=== PATIENT | female | born 1940 | race Caucasian/White ===

== ENCOUNTER 2022-02-09 11:32 | Inpatient (IN) ==
--- NOTE | 2022-02-09 12:16 | DR.EXT ---
HPI Time Seen Time Seen by Provider: 02/09/22 12:14 PCP Primary Care Physician: FLO HPI Comment HPI Comment: NECK BACK ,VOMITING AND HEADACHE. WAS SEEN IN ER 2 DAYS AGO AND WAS TREATED FOR NAUSEA,VOMITNG AND HEADACE AND UTI. STILL WITH SYMPTOMS AND RETURNED TO ER TODAY. Complaint Chief Complaint:: PT WAS IN ER ON THURSDAY WITH C/O NECK AND BACK PAIN, VOMITTING AND HEADACHES. PT WAS PRESCRIBED CIPRO FOR UTI. PT CONT TO HAVE SEVERE PAIN IN NECK, SHOULDERS AND BACK. Self Treatment fo Chief Complaint: CIPRO COVID-19 Coronavirus risk:travel/contact w/high risk person: No Has patient experienced Coronavirus symptoms: No Source History Provided: Patient Mode of Arrival Mode of Arrival: Ambulatory Timing Onset of Chief Complaint: 02/06/22 PMH PMH Past Medical History: Yes Past Medical History: Arthritis and Seizures Past Surgical History: Yes Surgical History: Joint Replacement and Other Family History History of Family Medical Conditions: No Social History Does patient currently use any type of tobacco product: Yes Have you used tobacco products in the last 12 months: Yes Type of Tobacco Use: Cigarettes Does any household member use tobacco: No Alcohol Use: None Do you use any recreational Drugs:: No Lives With: Alone Lives Where: Home Travel Risk Coronavirus risk:travel/contact w/high risk person: No Has patient experienced Coronavirus symptoms: No Infectious screening In the last 2 months have you had wt loss of >10#?: NO Have you had fever, night sweats or hemotysis?: No Have you traveled outside the country in the last 6 months?: No Isolation: Standard ROS Review of Systems Constitutional: Other (HEADACHE WITH NAUSEA AND VOMITNG AND R UPPER BACK PAIN.) Eyes: No Symptoms Reported ENTM: No Symptoms Reported Respiratoy: No Symptoms Reported Cardiovascular: No Symptoms Reported Gastrointestinal/Abdominal: Nausea and Vomiting Genitourinary: No Symptoms Reported Neurological: No Symptoms Reported Musculoskeletal: Back Pain Integumentary: No Symptoms Reported Hematologic/Lymphatic: No Symptoms Reported Endocrine: No Symptoms Reported Psychiatric: No Symptoms Reported PE Vital Signs Vitals: Temperature 98.7 F Pulse Rate 80 Respiratory Rate 20 Blood Pressure 116/58 O2 Sat by Pulse Oximetry 97 General Limitations: No Limitations General Appearance: In Distress (MODERATE DISTRESS) Head Head Exam: Normal Inspection, Atraumatic and Normocephalic Eyes Eye exam: Normal Appearance, PERRL and EOMI ENT ENT Exam: Normal Exam and Normal Oropharynx Neck Neck Exam: Normal Inspection, Full ROM and Trachea Midline Chest Chest Inspection: Normal Inspection and Symmetric Chest Wall Rise Respiratory Respiratory Exam: Normal Lung Sounds Bilat and Accessory Muscle Use Respiratory Exam: Bilateral: Clear to Auscultation Cardiovascular Cardiovascular Exam: Regular Rate and Normal Rhythm Abdominal Exam Abdominal Exam: Normal Inspection, Normal Bowel Sounds and Soft Extremies Extremities Exam: Normal Inspection and Full ROM Upper Extremities Shoulder Exam: Normal Inspection and Full ROM Arm Exam: Normal Inspection Elbow Exam: Normal Inspection Forearm Exam: Normal Inspection Hand Exam: Normal Inspection Neuromotor Exam: Normal Exam Neurosensory Exam: Normal Exam Lower Extremities Hip/Pelvis Exam: Normal Inspection Upper Leg Exam: Normal Inspection Knee Exam: Normal Inspection Lower Leg Exam: Normal Inspection Ankle Exam: Normal Inspection Foot/Toe Exam: Normal Inspection Neurovascular/Tendon Exam: Normal Capillary Refill Gait Exam: Observed and Normal Back Back Exam: Full ROM Neurologic Neurological Exam: Alert, Oriented X3 and CN II-XII Intact Psychiatric Psychiatric Exam: Normal Affect and Normal Mood Skin Skin Exam: Warm, Dry and Intact MDM Differential Diagnosis Differential Diagnosis: Other (HEADACHE,INTESTINAL OBSTRUCTION,HIATAL HERNI A,GERD) COURSE Treatment Treatment: PATIENT HAD CT OF ABDOMEN AND PELVIS THAT SHOWED POSSIBLE ABDOMINAL OUTLET OBSTRUCTION,LARGE HIATAL HERNIA CONTAINING THE ENTIRE STOMACH THAT WAS DILATED. GASTRIC VOLVULUS CANNT BE RULED OUT. SURGICAL CONSULT SUGGESTED. THE CT OF BRAIN SHOWED NO INTRACRANIAL ABNORMALITY. I SPOKE TO DR GUEVARA AT 1410 AND STATED TO ADMIT THE PATIENT TO HIM, GIVE PROTONIX 1V AND GIVE IV FLUIDS AND SOMETHING FOR PAIN. HE WOULD BE IN TO SE THE PATIENT. THE PATIENT'S DAUGHTER WAS ADVISED OF THE INTENT TO ADMIT AND SHE WAS AGREABLE TO THE ADMISSION. THE DAUGHTER TRANSLATED THIS TO HER MOTHER. ROR Labs Reviewed Laboratory Results Reviewed?: Yes Result Diagrams: 02/09/22 12:46 02/09/22 12:46 Laboratory: WBC 9.3 X10^3/uL (3.6-10.0) 02/09/22 12:46 RBC 3.74 X10^6/uL (3.5-5.4) 02/09/22 12:46 Hgb 11.8 g/dL (12.0-16.0) L 02/09/22 12:46 Hct 34.4 % (36.0-47.0) L 02/09/22 12:46 MCV 92.0 fL (80.0-100.0) 02/09/22 12:46 MCH 31.4 pg (27.0-34.0) 02/09/22 12:46 MCHC 34.2 g/dL (33.0-35.0) 02/09/22 12:46 RDW 13.7 % (11.6-16.5) 02/09/22 12:46 Plt Count 317 X10^3/uL (150.0-450.0) 02/09/22 12:46 MPV 8.1 fL (7.4-11.0) 02/09/22 12:46 Neut % (Auto) 77.4 % (42.0-75.0) H 02/09/22 12:46 Lymph % (Auto) 14.9 % (21.0-51.0) L 02/09/22 12:46 [place] % (Auto) 6.9 % (0.0-13.0) 02/09/22 12:46 Eos % (Auto) 0.4 % (0.9-2.9) L 02/09/22 12:46 Baso % (Auto) 0.4 % (0.2-1.0) 02/09/22 12:46 Neut # (Auto) 7.2 x10^3/uL (2.2-4.8) H 02/09/22 12:46 Lymph # (Auto) 1.4 X10^3/uL (1.3-2.9) 02/09/22 12:46 [place] # (Auto) 0.6 x10^3/uL (0.3-0.8) 02/09/22 12:46 Eos # (Auto) 0.0 x10^3/uL (0.0-0.2) 02/09/22 12:46 Baso # (Auto) 0.0 X10^3/uL (0.0-0.1) 02/09/22 12:46 Absolute Nucleated RBC 0.0 /100WBC 02/09/22 12:46 Sodium 136 mmol/L (136-145) 02/09/22 12:46 Corrected Sodium 136 mmol/L (136-145) 02/09/22 12:46 Potassium 4.0 mmol/L (3.5-5.1) 02/09/22 12:46 Chloride 99 mmol/L (98-107) 02/09/22 12:46 Carbon Dioxide 31.2 mmol/L (21-32) 02/09/22 12:46 BUN 18 mg/dL (7-18) 02/09/22 12:46 Creatinine 0.85 mg/dL (0.55-1.02) 02/09/22 12:46 Est GFR (MDRD) Af Amer > 60 (>60) 02/09/22 12:46 Est GFR (MDRD) Non-Af > 60 (>60) 02/09/22 12:46 Glucose 119 mg/dL (65-99) H 02/09/22 12:46 Calcium 8.4 mg/dL (8.5-10.1) L 02/09/22 12:46 Corrected Calcium 9.0 mg/dL (8.5-10.1) 02/09/22 12:46 Total Bilirubin 0.30 mg/dL (0.2-1.0) 02/09/22 12:46 AST 15 Units/L (15-37) 02/09/22 12:46 ALT 13 Units/L (12-78) 02/09/22 12:46 Alkaline Phosphatase 257 Units/L (46-116) H 02/09/22 12:46 Total Protein 7.1 g/dL (6.4-8.2) 02/09/22 12:46 Albumin 3.3 g/dL (3.4-5.0) L 02/09/22 12:46 Globulin 3.8 g/dL (2.5-4.5) 02/09/22 12:46 Albumin/Globulin Ratio 0.9 Ratio (1.1-2.1) L 02/09/22 12:46 Opioid Opioid Risk Tool Age (Nam box if 16-45): No History of Preadolescent Sexual Abuse: No Total: 0 Total Score Risk Category: Low Risk Copyright: Rodriguez MATTSON predicting aberrant behaviors Discharge Plan Diagnosis Discharge Problem: Gastric outlet obstruction, Large hiatal hernia Discharge Plan Patient Disposition: 09 ADMITTED INPATIENT Condition: Stable Prescriptions: No Action carbamazepine 200 mg tablet extended release 12 hr 1 tab PO TID gabapentin 100 mg capsule 1 cap PO TID Health Concerns: Post Hospitalization: new medications and changes needed to prevent readmission or further decline. Pt educated and given instructions on all concerns. Plan of Treatment: Continue with present treatment and follow up plan. Pt is to keep follow up appointment as instructed and take medications as ordered. Orders to Discharge Patient Discharge Orders: Transfer (Routine); Ordered 02/09/22 Ordered By: Peterson Larkin Follow ups/Referrals Follow ups/Referrals: LEVY ROSSI [Primary Care Provider] - 3 days
[2022-02-09 13:06] LABS: BASOPHILS % (AUTO) 0.4 % (0.2-1.0); EOSINOPHILS % (AUTO) 0.4 % (0.9-2.9); HEMATOCRIT 34.4 % (36.0-47.0); HEMOGLOBIN 11.8 g/dL (12.0-16.0); LYMPHOCYTES # (AUTO) 1.4 X10^3/uL (1.3-2.9); LYMPHOCYTES % (AUTO) 14.9 % (21.0-51.0); MEAN CORPUSCULAR HEMOGLOBIN 31.4 pg (27.0-34.0); MEAN CORPUSCULAR HGB CONC 34.2 g/dL (33.0-35.0); MEAN PLATELET VOLUME 8.1 fL (7.4-11.0); MONOCYTES # (AUTO) 0.6 x10^3/uL (0.3-0.8); MONOCYTES % (AUTO) 6.9 % (0.0-13.0); NEUTROPHILS # (AUTO) 7.2 x10^3/uL (2.2-4.8); NEUTROPHILS % (AUTO) 77.4 % (42.0-75.0); RED BLOOD COUNT 3.74 X10^6/uL (3.5-5.4); RED CELL DISTRIBUTION WIDTH 13.7 % (11.6-16.5); WHITE BLOOD COUNT 9.3 X10^3/uL (3.6-10.0)
[2022-02-09 13:15] LABS: ALANINE AMINOTRANSFERASE 13 Units/L (12-78); ALBUMIN 3.3 g/dL (3.4-5.0); ALKALINE PHOSPHATASE 257 Units/L (46-116); ASPARTATE AMINO TRANSFERASE 15 Units/L (15-37); BLOOD UREA NITROGEN 18 mg/dL (7-18); CALCIUM 8.4 mg/dL (8.5-10.1); CARBON DIOXIDE 31.2 mmol/L (21-32); CHLORIDE 99 mmol/L (98-107); COR NA(FOR HYPERGLY) 136 mmol/L (136-145); CREATININE 0.85 mg/dL (0.55-1.02); SODIUM 136 mmol/L (136-145); TOTAL PROTEIN 7.1 g/dL (6.4-8.2); eGFR NON BLACK RACES > 60 (>60)
--- NOTE | 2022-02-09 13:39 | CT ---
HISTORYHeadache, nausea, neck painSTUDYCT head without contrastTechnique: Axial noncontrast images with coronal and sagittal reformats. Dose reduction procedures were used with mA/kv adjusted for body size.COMPARISONNoneFINDINGSThe ventricles, cortical sulci, and other CSF spaces are enlarged consistent with generalized atrophy likely age related. There is decreased attenuation in the periventricular white matter suggestive of small vessel vascular disease. There are no focal areas of abnormal attenuation to suggest recent or remote CVA, hemorrhage, mass lesion, or extra-axial fluid collection. There are 2 right-sided ethmoid air cells demonstrating opacification likely inflammatory in origin. The remainder of the visualized paranasal sinuses are clear. The calvarium is intact.IMPRESSIONNo acute intracranial abnormality identifiedGeneralized atrophy likely age relatedSmall-vessel diseaseOpacified right ethmoid air cells likely inflammatory in origin.Electronically signed by: ATILIO LIU (Feb 09, 2022 13:37:47)
--- NOTE | 2022-02-09 13:53 | CT ---
HISTORYNausea, vomiting, back painSTUDYCT abdomen pelvis without contrastTechnique: Axial noncontrast images with coronal and sagittal reformats. Dose reduction procedures were used with mA/kv adjusted for body size. This examination is limited due to the lack of intravenous and oral contrast.COMPARISONNoneFINDINGSThe lung bases are clear. There is a very large hiatal hernia present. Nearly the entire stomach is intrathoracic. The stomach is dilated. Gastric volvulus is possible as is gastric outlet obstruction. Surgical evaluation is recommended. The liver, spleen, adrenal glands, and pancreas are within normal limits to the limitations of an unenhanced examination. Cholelithiasis is present. There is no evidence for cholecystitis. The kidneys are unobstructed and without stones. No ureteral calculi are identified. Calcific atherosclerotic changes present in a nondilated abdominal aorta. No intraperitoneal or retroperitoneal lymphadenopathy of significance is identified. The appendix is not identified with absolute certainty. There are no secondary signs of appendicitis. There are no findings suggestive of enteritis, colitis, or diverticulitis. Examination of the pelvis demonstrated no evidence for pelvic masses, pelvic fluid, or pelvic lymphadenopathy. No bladder abnormality is identified. Skeletal changes of Paget's disease are identified in the entire sacrum. No other lytic or blastic changes are identified.IMPRESSIONVery large hiatal hernia containing nearly the entire stomach which is distended. Gastric volvulus is possible as is gastric outlet obstruction. Immediate surgical evaluation is recommended.Cholelithiasis without evidence for cholecystitisPaget's disease involving the entire sacrum.Electronically signed by: ATILIO LIU (Feb 09, 2022 13:51:06)
[2022-02-09] MEDS ORDERED: ZOFRAN INJ 4 MG VIAL IVP ONE (14:18)
[2022-02-09] MEDS ORDERED: MORPHINE SULFATE INJ 2 MG INJ IVP ONE (14:18)
[2022-02-09] MEDS ORDERED: PROTONIX INJ 40 MG VIAL IVP ONE (14:18)
[2022-02-09] MEDS ORDERED: NS 1,000 ML IV 1,000 ML ONE (14:22)
[2022-02-09] MEDS ORDERED: MORPHINE SULFATE INJ 2 MG INJ ONE (14:22)
[2022-02-09] MEDS ORDERED: PROTONIX INJ 40 MG VIAL ONE (14:22)
[2022-02-09] MEDS ORDERED: ZOFRAN INJ 4 MG VIAL ONE (14:22)
[2022-02-09] MEDS ORDERED: NS 1,000 ML IV 1,000 ML IV SCH (15:00)
[2022-02-09 16:17] VITALS: BMI 23.2
[2022-02-09] MEDS: MORPHINE SULFATE INJ 2 MG INJ IVP PRN ×2 (18:40→23:12)
[2022-02-09] MEDS: ZOFRAN INJ 4 MG VIAL IVP PRN (18:40)
[2022-02-09] MEDS: LR 1,000 ML IV 1,000 ML IV SCH (19:00)
[2022-02-09] MEDS: NICOTINE PATCH TD SCH (19:02)
[2022-02-09] MEDS: NEURONTIN CAP 100 MG PO SCH (22:03)
--- NOTE | 2022-02-09 23:37 | DR.H&P ---
H&P History & Physical for Day of: H&P Date: 02/09/22 Chief Complaint Chief Complaint: Back pain, abdominal pain, vomiting Allergies Allergies Allergy/AdvReac Type Severity Reaction Status Date / Time aspirin Allergy Verified 02/07/22 19:14 Penicillins Allergy Verified 02/07/22 19:14 Sulfa (Sulfonamide Allergy Verified 02/07/22 19:14 Antibiotics) [SULFA] History of Present Illness History of Present Illness: 81 year old female who was seen in the emergency room 2 days ago for back pain and was diagnosed with urinary tract infection. Treated with po antibiotics and discharged home. Returned today c/o back pain, abdominal pain with vomiting. CT scan of the abdomen and pelvis obtained which showed a large hiatal hernia which has been recognized on chest x-ray before. No contrast was given but possibility of gastric outlet obstruction exists. Patient in no extremis since she's been given pain medication and antiemetic medication. Patient is a regular smoker. she does not speak [place] and all her history obtained from her family who speaks [place] well. 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 ) Past Surgical History Surgical History: Joint Replacement (both knees have been replaced and she required a gerardo of the right femur ) and Other Family History Family Medical History: Cancer Social History Does patient currently use any type of tobacco product: Yes Have you used tobacco products in the last 12 months: Yes Type of Tobacco Use: Cigarettes How many years tobacco product used: 50 Does any household member use tobacco: No Alcohol Use: None Drug Use: None Medications Home Medications: aspirin Allergy (Verified 02/07/22 19:14) Penicillins Allergy (Verified 02/07/22 19:14) Sulfa (Sulfonamide Antibiotics) [SULFA] Allergy (Verified 02/07/22 19:14) Carbamazepine 1 po TID Gabapentin 1 po TID Labs Result Diagrams: 02/09/22 12:46 02/09/22 12:46 Labs: Laboratory WBC 9.3 X10^3/uL (3.6-10.0) 02/09/22 12:46 RBC 3.74 X10^6/uL (3.5-5.4) 02/09/22 12:46 Hgb 11.8 g/dL (12.0-16.0) L 02/09/22 12:46 Hct 34.4 % (36.0-47.0) L 02/09/22 12:46 MCV 92.0 fL (80.0-100.0) 02/09/22 12:46 MCH 31.4 pg (27.0-34.0) 02/09/22 12:46 MCHC 34.2 g/dL (33.0-35.0) 02/09/22 12:46 RDW 13.7 % (11.6-16.5) 02/09/22 12:46 Plt Count 317 X10^3/uL (150.0-450.0) 02/09/22 12:46 MPV 8.1 fL (7.4-11.0) 02/09/22 12:46 Neut % (Auto) 77.4 % (42.0-75.0) H 02/09/22 12:46 Lymph % (Auto) 14.9 % (21.0-51.0) L 02/09/22 12:46 [place] % (Auto) 6.9 % (0.0-13.0) 02/09/22 12:46 Eos % (Auto) 0.4 % (0.9-2.9) L 02/09/22 12:46 Baso % (Auto) 0.4 % (0.2-1.0) 02/09/22 12:46 Neut # (Auto) 7.2 x10^3/uL (2.2-4.8) H 02/09/22 12:46 Lymph # (Auto) 1.4 X10^3/uL (1.3-2.9) 02/09/22 12:46 [place] # (Auto) 0.6 x10^3/uL (0.3-0.8) 02/09/22 12:46 Eos # (Auto) 0.0 x10^3/uL (0.0-0.2) 02/09/22 12:46 Baso # (Auto) 0.0 X10^3/uL (0.0-0.1) 02/09/22 12:46 Absolute Nucleated RBC 0.0 /100WBC 02/09/22 12:46 Sodium 136 mmol/L (136-145) 02/09/22 12:46 Corrected Sodium 136 mmol/L (136-145) 02/09/22 12:46 Potassium 4.0 mmol/L (3.5-5.1) 02/09/22 12:46 Chloride 99 mmol/L (98-107) 02/09/22 12:46 Carbon Dioxide 31.2 mmol/L (21-32) 02/09/22 12:46 BUN 18 mg/dL (7-18) 02/09/22 12:46 Creatinine 0.85 mg/dL (0.55-1.02) 02/09/22 12:46 Est GFR (MDRD) Af Amer > 60 (>60) 02/09/22 12:46 Est GFR (MDRD) Non-Af > 60 (>60) 02/09/22 12:46 Glucose 119 mg/dL (65-99) H 02/09/22 12:46 Calcium 8.4 mg/dL (8.5-10.1) L 02/09/22 12:46 Corrected Calcium 9.0 mg/dL (8.5-10.1) 02/09/22 12:46 Total Bilirubin 0.30 mg/dL (0.2-1.0) 02/09/22 12:46 AST 15 Units/L (15-37) 02/09/22 12:46 ALT 13 Units/L (12-78) 02/09/22 12:46 Alkaline Phosphatase 257 Units/L (46-116) H 02/09/22 12:46 Total Protein 7.1 g/dL (6.4-8.2) 02/09/22 12:46 Albumin 3.3 g/dL (3.4-5.0) L 02/09/22 12:46 Globulin 3.8 g/dL (2.5-4.5) 02/09/22 12:46 Albumin/Globulin Ratio 0.9 Ratio (1.1-2.1) L 02/09/22 12:46 Review of Systems Constitutional: See HPI Eyes: No Symptoms Reported ENT: No Symptoms Reported Respiratory: No Symptoms Reported Cardiovascular: No Symptoms Reported Gastrointestinal: No Symptoms Reported Genitourinary: No Symptoms Reported and Other (treated for a urinary tract infection on ER visit two days ago probably is not correct ) Musculoskeletal: See HPI Skin: See HPI Neurological: See HPI Physical Exam Vital Signs: Temperature 98.9 F Pulse Rate [Left Brachial] 81 Pulse Rate 80 Respiratory Rate 20 Blood Pressure [Left Arm] 123/59 Blood Pressure 116/58 O2 Sat by Pulse Oximetry 93 Oriented: Normal, Time, Person and Place Eyes: Normal Ear: Normal Nose: Normal Throat: Normal Respiratory: Clear Throughout Cardiovascular: Normal : Normal Auscultation: Bowel Sounds: Normal Palpation: Normal Tenderness: Normal Skin: Normal Musculoskeletal: Normal Psychiatric: Normal Mood Description: Calm Affect: Normal Speech Pattern: Clear Assessment/Plan (1) Large hiatal hernia: Status: Acute Plan: Hydrate patient. CT scan with oral contrast. Patient will most likely require a laparoscopic production of large hiatal hernia and laparoscopic Charles fundoplication with closure of diaphragmatic defect. Pain control and control of nausea . (2) Seizures: Status: Acute Plan: usual medications (3) Tobacco abuse: Status: Acute Plan: Nicotine patch
[2022-02-10] MEDS: NEURONTIN CAP 100 MG PO SCH ×3 (05:41→21:26)
[2022-02-10] MEDS: ZOFRAN INJ 4 MG VIAL IVP PRN (06:12)
[2022-02-10] MEDS: MORPHINE SULFATE INJ 2 MG INJ IVP PRN (06:17)
[2022-02-10] MEDS: LR 1,000 ML IV 1,000 ML IV SCH ×2 (08:33→21:27)
[2022-02-10] MEDS: NICOTINE PATCH TD SCH (08:34)
[2022-02-10] MEDS: PROTONIX INJ 40 MG VIAL IVP SCH (08:34)
--- NOTE | 2022-02-10 12:39 | CT ---
HISTORYLARGER HIATAL HERNIASTUDYCHEST WITH CONCOMPARISONChest radiograph dated 02/07/2022TECHNIQUEMultiple axial images of the chest were obtained from the thoracic inlet to the upper abdomen after the administration of IV contrast. Dose reduction techniques including Automated Exposure Control (AEC) and adjustment of mA and kV were utilized.FINDINGSA large central sliding hiatal hernia is noted to be present within the chest cavity. The mediastinum does not demonstrate significant pathological lymphadenopathy. There is no paracardial effusion observed. The thoracic aorta is normal in its contour without evidence for aneurysmal dilatation. The central pulmonary arterial system does not demonstrate central filling defects to suggest pulmonary emboli.Evaluation of the lung parenchyma fails to demonstrate focal consolidation or effusion . No pulmonary nodule or mass can be identified. The bony thorax is unremarkable in its appearance . The visualized portions of the upper abdomen are grossly unremarkable .IMPRESSIONLarge central sliding hiatal hernia is noted to be present. Otherwise, unremarkable evaluation of the chest with contrast.Electronically signed by: CHRISTY PACHECO (Feb 10, 2022 12:36:59)
--- NOTE | 2022-02-10 12:40 | CT ---
HISTORYLARGE HIATAL HERNIASTUDYABDOMEN/PELVIS WITH CONCOMPARISONNoneTECHNIQUEMultiple axial images of the abdomen and pelvis were obtained from the lung bases to the pubic symphysis after the administration of IV contrast. Dose reduction techniques including Automated Exposure Control (AEC) and adjustment of mA and kV were utilized.FINDINGSThe visualized portions of the lung bases demonstrate subsegmental atelectasis right left base secondary to compressive atelectasis from a large central sliding hiatal hernia noted to be present. The liver, spleen, pancreas, kidneys, and adrenal glands are unremarkable in their CT appearance. The gallbladder is unremarkable in its CT appearance . No significant mesenteric lymphadenopathy or stranding can be observed. No free fluid or free air is seen within the abdomen. No bowel wall thickening or bowel dilatation is present. Diffuse diverticular changes of the sigmoid colon are observed without CT evidence for acute diverticulitis. The urinary bladder is grossly unremarkable. The bony structures are grossly intact.IMPRESSIONA large central sliding hiatal hernia is noted to be within the chest cavity.Diffuse diverticular changes of the sigmoid colon are observed without CT evidence for acute diverticulitis.Electronically signed by: CHRISTY PACHECO (Feb 10, 2022 12:38:06)
--- NOTE | 2022-02-10 19:18 | NOTE.SOAP ---
Soap Note Note for Day of Date of Exam: 02/10/22 Subjective Data Subjective Data: Patient admitted with a large hiatal hernia, abdominal and back pain with significant vomiting. Vomiting has resloved. Patietn had CT of chest and abdomen with po contrast showing no leak . No comment was made as to the location of the GE junction. Objective Data Temperature: 98.4 F Pulse Rate: 68 Respiratory Rate: 18 Blood Pressure: 146/66 O2 Sat by Pulse Oximetry: 94 Objective Data: Benign abdomen Assessment Assessment: Hiatal hernia with most of stomach on the chest , possible component of intermittent obstruction. Plan Plan: EGD tomorrow. To get a better idea of the possible inversion of the stomach and the location of the GE junction.
[2022-02-11] MEDS: NEURONTIN CAP 100 MG PO SCH ×3 (05:12→21:01)
[2022-02-11 05:53] LABS: BASOPHILS # (AUTO) 0.1 X10^3/uL (0.0-0.1); EOSINOPHILS # (AUTO) 0.2 x10^3/uL (0.0-0.2); EOSINOPHILS % (AUTO) 2.6 % (0.9-2.9); HEMOGLOBIN 10.2 g/dL (12.0-16.0); LYMPHOCYTES # (AUTO) 1.8 X10^3/uL (1.3-2.9); LYMPHOCYTES % (AUTO) 26.7 % (21.0-51.0); MEAN CORPUSCULAR HEMOGLOBIN 31.6 pg (27.0-34.0); MEAN CORPUSCULAR HGB CONC 34.2 g/dL (33.0-35.0); MEAN CORPUSCULAR VOLUME 92.3 fL (80.0-100.0); MEAN PLATELET VOLUME 8.2 fL (7.4-11.0); MONOCYTES # (AUTO) 0.5 x10^3/uL (0.3-0.8); MONOCYTES % (AUTO) 7.8 % (0.0-13.0); NEUTROPHILS # (AUTO) 4.1 x10^3/uL (2.2-4.8); NEUTROPHILS % (AUTO) 61.9 % (42.0-75.0); RED BLOOD COUNT 3.25 X10^6/uL (3.5-5.4); RED CELL DISTRIBUTION WIDTH 13.8 % (11.6-16.5); WHITE BLOOD COUNT 6.7 X10^3/uL (3.6-10.0)
[2022-02-11 06:14] LABS: ALANINE AMINOTRANSFERASE 13 Units/L (12-78); ALBUMIN 2.7 g/dL (3.4-5.0); ALKALINE PHOSPHATASE 219 Units/L (46-116); ASPARTATE AMINO TRANSFERASE 16 Units/L (15-37); BLOOD UREA NITROGEN 13 mg/dL (7-18); CALCIUM 7.8 mg/dL (8.5-10.1); CARBON DIOXIDE 29.3 mmol/L (21-32); CHLORIDE 104 mmol/L (98-107); COR CA(FOR HYPOALB) 8.8 mg/dL (8.5-10.1); CREATININE 0.85 mg/dL (0.55-1.02); SODIUM 139 mmol/L (136-145); eGFR NON BLACK RACES > 60 (>60)
[2022-02-11] MEDS ORDERED: NS 1,000 ML IV 1,000 ML ONE (07:31)
[2022-02-11] MEDS ORDERED: DIPRIVAN VIAL 20 ML ONE (07:39)
[2022-02-11] MEDS ORDERED: XYLOCAINE 2 % (PLAIN) ONE (07:39)
[2022-02-11] MEDS: LR 1,000 ML IV 1,000 ML IV SCH ×3 (10:00→21:54)
[2022-02-11] MEDS: NICOTINE PATCH TD SCH (10:00)
[2022-02-11] MEDS: PROTONIX INJ 40 MG VIAL IVP SCH (10:01)
--- NOTE | 2022-02-11 11:54 | OR.IMMED ---
IMMEDIATE POST-OP NOTE Immediate Post-Op Note Pre-Op Diagnosis: Hiatal hernia with most of stomach in chest, abdominal pain, vomiting Post-Op Diagnosis: Hiatal hernia, sliding, GE junction at 30 cm, distal gastric ulcer, healing, no bleeding Procedure: EGD and biopsy gastric ulcer Description of Procedure: see operative summary Surgeon/Geoint Analyst: Noe Findings: as above Estimated Blood Loss: 0 cc Complications: None Progress Notes: Return to floor, Continue diet and IV Protonix, Will plan laparoscopic reduction and repair of hiatal hernia with Charles fundoplication. Final Diagnosis: as above
[2022-02-11] MEDS: ZOFRAN INJ 4 MG VIAL IVP PRN (21:03)
[2022-02-11] MEDS: MORPHINE SULFATE INJ 2 MG INJ IVP PRN (21:05)
[2022-02-12 04:54] LABS: BASOPHILS % (AUTO) 0.8 % (0.2-1.0); EOSINOPHILS # (AUTO) 0.2 x10^3/uL (0.0-0.2); EOSINOPHILS % (AUTO) 2.8 % (0.9-2.9); HEMATOCRIT 28.8 % (36.0-47.0); LYMPHOCYTES # (AUTO) 2.2 X10^3/uL (1.3-2.9); LYMPHOCYTES % (AUTO) 37.4 % (21.0-51.0); MEAN CORPUSCULAR HEMOGLOBIN 32.1 pg (27.0-34.0); MEAN CORPUSCULAR HGB CONC 34.6 g/dL (33.0-35.0); MEAN CORPUSCULAR VOLUME 92.6 fL (80.0-100.0); MEAN PLATELET VOLUME 8.4 fL (7.4-11.0); MONOCYTES # (AUTO) 0.5 x10^3/uL (0.3-0.8); MONOCYTES % (AUTO) 7.7 % (0.0-13.0); NEUTROPHILS % (AUTO) 51.3 % (42.0-75.0); RED BLOOD COUNT 3.11 X10^6/uL (3.5-5.4); RED CELL DISTRIBUTION WIDTH 13.6 % (11.6-16.5); WHITE BLOOD COUNT 5.9 X10^3/uL (3.6-10.0)
[2022-02-12] MEDS: LR 1,000 ML IV 1,000 ML IV SCH ×2 (05:02→10:46)
[2022-02-12] MEDS: NEURONTIN CAP 100 MG PO SCH ×3 (05:04→22:40)
[2022-02-12 05:14] LABS: ALANINE AMINOTRANSFERASE 12 Units/L (12-78); ALBUMIN 2.5 g/dL (3.4-5.0); ALKALINE PHOSPHATASE 204 Units/L (46-116); ASPARTATE AMINO TRANSFERASE 17 Units/L (15-37); BLOOD UREA NITROGEN 15 mg/dL (7-18); CALCIUM 7.5 mg/dL (8.5-10.1); CARBON DIOXIDE 27.9 mmol/L (21-32); CHLORIDE 105 mmol/L (98-107); COR CA(FOR HYPOALB) 8.7 mg/dL (8.5-10.1); CREATININE 0.91 mg/dL (0.55-1.02); SODIUM 141 mmol/L (136-145); TOTAL PROTEIN 5.6 g/dL (6.4-8.2); eGFR NON BLACK RACES > 60 (>60)
[2022-02-12] MEDS ORDERED: KLOR-CON PO PRN (05:17)
[2022-02-12] MEDS ORDERED: POTASSIUM CHL 60 MEQ/NS 0.45% 500 ML IV PRN (05:17)
[2022-02-12] MEDS ORDERED: MICRO K EXTEN CAP 10 MEQ PO PRN (05:17)
[2022-02-12] MEDS ORDERED: K-DUR TAB 20 MEQ PO PRN (05:17)
[2022-02-12] MEDS ORDERED: POTASSIUM CHL 40 MEQ/NS 0.45% 500 ML IV PRN (05:17)
[2022-02-12] MEDS ORDERED: MAGNESIUM SULFATE 1 GRAM/100 mL PREMIX 1 G/100 ML BAG IV PRN (05:17)
[2022-02-12] MEDS ORDERED: POTASSIUM CHLORIDE LIQ 20 MEQ UDC PO PRN (05:17)
[2022-02-12] MEDS ORDERED: K-RIDER 10 MEQ/NS 100 ML 10 MEQ/100 ML BAG IV PRN (05:17)
[2022-02-12] MEDS: PROTONIX INJ 40 MG VIAL IVP SCH (08:22)
[2022-02-12] MEDS: NICOTINE PATCH TD SCH (08:23)
[2022-02-13] MEDS: LR 1,000 ML IV 1,000 ML IV SCH ×4 (04:55→17:25)
[2022-02-13 05:02] LABS: BASOPHILS % (AUTO) 0.4 % (0.2-1.0); EOSINOPHILS # (AUTO) 0.2 x10^3/uL (0.0-0.2); EOSINOPHILS % (AUTO) 4.1 % (0.9-2.9); HEMATOCRIT 28.9 % (36.0-47.0); LYMPHOCYTES # (AUTO) 1.9 X10^3/uL (1.3-2.9); LYMPHOCYTES % (AUTO) 32.6 % (21.0-51.0); MEAN CORPUSCULAR HEMOGLOBIN 32.2 pg (27.0-34.0); MEAN CORPUSCULAR HGB CONC 34.8 g/dL (33.0-35.0); MEAN CORPUSCULAR VOLUME 92.6 fL (80.0-100.0); MEAN PLATELET VOLUME 8.3 fL (7.4-11.0); MONOCYTES # (AUTO) 0.4 x10^3/uL (0.3-0.8); MONOCYTES % (AUTO) 7.2 % (0.0-13.0); NEUTROPHILS # (AUTO) 3.2 x10^3/uL (2.2-4.8); NEUTROPHILS % (AUTO) 55.7 % (42.0-75.0); RED BLOOD COUNT 3.12 X10^6/uL (3.5-5.4); RED CELL DISTRIBUTION WIDTH 13.6 % (11.6-16.5); WHITE BLOOD COUNT 5.7 X10^3/uL (3.6-10.0)
[2022-02-13 05:19] LABS: ALANINE AMINOTRANSFERASE 12 Units/L (12-78); ALBUMIN 2.5 g/dL (3.4-5.0); ALKALINE PHOSPHATASE 199 Units/L (46-116); ASPARTATE AMINO TRANSFERASE 14 Units/L (15-37); BLOOD UREA NITROGEN 17 mg/dL (7-18); CALCIUM 7.7 mg/dL (8.5-10.1); CARBON DIOXIDE 27.1 mmol/L (21-32); CHLORIDE 107 mmol/L (98-107); COR CA(FOR HYPOALB) 8.9 mg/dL (8.5-10.1); CREATININE 0.88 mg/dL (0.55-1.02); SODIUM 143 mmol/L (136-145); TOTAL PROTEIN 5.6 g/dL (6.4-8.2); eGFR NON BLACK RACES > 60 (>60)
[2022-02-13] MEDS: NEURONTIN CAP 100 MG PO SCH ×3 (05:39→21:46)
--- NOTE | 2022-02-13 07:53 | NOTE.SOAP ---
Soap Note Note for Day of Date of Exam: 02/12/22 Subjective Data Subjective Data: Patietn admitted with hiatal hernia and stomach up in her chest almost emntirely with abdominal pain. Pain now relieved. EGD showed healing pre-pyloric ulcer. Objective Data Temperature: 97.0 F Pulse Rate: 77 Respiratory Rate: 16 Blood Pressure: 132/83 O2 Sat by Pulse Oximetry: 95 Objective Data: Benign abdomen and vomiting resolved .Tolerating regular diet. Assessment Assessment: Pre- pyloric ulcer healing with IV Protonix. Stomach in chest. Plan Plan: Continue Protonix. Plan laproscopic reduction and repair of hiatal hernia with possibler Charles fundoplication
[2022-02-13] MEDS: NICOTINE PATCH TD SCH (08:50)
[2022-02-13] MEDS: PROTONIX INJ 40 MG VIAL IVP SCH (08:50)
[2022-02-13] MEDS ORDERED: DUONEB 0.5 MG/3 MG (3 mL) NEB ONE ×2 (10:22→10:26)
--- NOTE | 2022-02-13 10:48 | EKG ---
Test Reason : sob Blood Pressure : */* mmHG Vent. Rate : 71 BPM Atrial Rate : 71 BPM P-R Int : 156 ms QRS Dur : 64 ms QT Int : 436 ms P-R-T Axes : 64 0 22 degrees QTc Int : 473 ms Normal sinus rhythm Low voltage QRS Borderline ECG No previous ECGs available Confirmed by Trent Gabriel ([id number]) on 02/13/2022 1:15:43 PM Referred By: Confirmed By: Trent Gabriel
[2022-02-13] MEDS ORDERED: VERSED ONE (12:17)
[2022-02-13] MEDS ORDERED: FENTANYL VIAL INJ 100 mcg ONE (12:17)
[2022-02-13] MEDS ORDERED: DIPRIVAN VIAL 20 ML ONE (12:17)
[2022-02-13] MEDS ORDERED: OFIRMEV IV 1000 MG VIAL 1,000 MG/100 ML VIAL IV ONE (12:17)
[2022-02-13] MEDS ORDERED: BRIDION ONE (12:17)
[2022-02-13] MEDS ORDERED: ZEMURON 100 MG VIAL ONE (12:18)
[2022-02-13] MEDS ORDERED: PEPCID 20 MG VIAL ONE (12:18)
[2022-02-13] MEDS ORDERED: ZOFRAN INJ 4 MG VIAL ONE (12:18)
[2022-02-13] MEDS ORDERED: XYLOCAINE 2 % (PLAIN) ONE (12:18)
[2022-02-13] MEDS ORDERED: LR 1,000 ML IV 1,000 ML IV ONE (12:45)
[2022-02-13] MEDS ORDERED: ANCEF VIAL 1 GRAM ONE (12:48)
[2022-02-13] MEDS ORDERED: NS 100 ML IV 100 ML ONE (12:49)
[2022-02-13] MEDS ORDERED: LIDOCAINE 2%-EPI 1:200,000 ONE (12:53)
[2022-02-13] MEDS ORDERED: NS 1,000 ML IV 1,000 ML ONE ×2 (12:53→14:45)
[2022-02-13] MEDS ORDERED: SUPRANE ONE (13:14)
[2022-02-13] MEDS ORDERED: EPHEDRINE SULFATE INJ ONE (13:31)
[2022-02-13] MEDS ORDERED: NEO-SYNEPHRINE INJ ONE (14:35)
[2022-02-13] MEDS ORDERED: VASOSTRICT INJ 20 UNITS VIAL ONE (14:35)
[2022-02-13] MEDS ORDERED: DILAUDID INJ ONE ×2 (15:37→16:12)
[2022-02-13 15:56] LABS: HEMATOCRIT 24.6 % (36.0-47.0); HEMOGLOBIN 8.2 g/dL (12.0-16.0)
[2022-02-13] MEDS ORDERED: BENADRYL INJ 50 MG VIAL IVP PRN (16:04)
[2022-02-13] MEDS ORDERED: BARHEMSYS INJ IVP PRN (16:04)
[2022-02-13] MEDS ORDERED: ZOFRAN INJ 4 MG VIAL IVP PRN (16:04)
[2022-02-13] MEDS ORDERED: DILAUDID INJ IVP PRN (16:04)
[2022-02-13] MEDS: MORPHINE SULFATE INJ 2 MG INJ IVP PRN ×2 (17:53→21:49)
--- NOTE | 2022-02-13 19:18 | OR.IMMED ---
IMMEDIATE POST-OP NOTE Immediate Post-Op Note Pre-Op Diagnosis: Large hiatal hernia, stomach in chest Post-Op Diagnosis: same Procedure: Laparoscopic hiatal hernia repair with partial fundoplication, 270 degrees Description of Procedure: see operative summary Surgeon/Plastics Fabrication Supervisor: Noe Findings: as above, 2/3 of stomach in the chest. Estimated Blood Loss: 300 cc Complications: none Progress Notes: Patient extubated post op without problem, hypotensive and Hgb decreased to 8 grams. To receive 2 units of PRBCs. Begin diet. Condition: Stable Final Diagnosis: as above
--- NOTE | 2022-02-13 19:22 | NOTE.SOAP ---
Soap Note Note for Day of Date of Exam: 02/13/22 Subjective Data Subjective Data: S/P hiatal hernia repair and partial fundoplication. In ICU to receive blood .Awake and stable. On no pressors. Taking chicken soup. Objective Data Pulse Rate: 81 Respiratory Rate: 23 Blood Pressure: 116/68 O2 Sat by Pulse Oximetry: 100 Objective Data: Abdomen soft and not distended. Laprascopic incisions intact without drainage. Assessment Assessment: S/P repair of hiatal hernia and partial fundoplication. Plan Plan: CXR now since I dissected stomach out of chest. CBC after blood transfused and in AM.
--- NOTE | 2022-02-13 20:11 | RAD ---
EXAM: CHEST X-RAYHISTORY: Postop hernia and chestTECHNIQUE: AP CXR dated 09/13/2021 at 7:51 PMCOMPARISON: Chest CT dated February 10, 2022.FINDINGS:There is again evidence for a very large retrocardiac hiatal hernia, with mild atelectatic changes seen in the medial lower lobes adjacent to the hernia. There is severe aortic atherosclerosis. The heart size appears grossly unremarkable.There is no gross focal lung consolidation, pleural effusion, or pneumothorax seen. The visualized bony structures are within normal limits.IMPRESSION:1. Very large retrocardiac hiatal hernia, with mild compressive atelectatic changes in the medial lower lobes (stable appearance).2. Recommend clinical correlation and appropriate follow-up CXR evaluation to ensure interval clearance as clinically warranted.3. Consider follow-up chest CT for further characterization as clinically warranted.Electronically signed by: Charlette Thomson (Feb 13, 2022 20:09:19)
[2022-02-14 01:19] LABS: BASOPHILS % (AUTO) 0.2 % (0.2-1.0); HEMATOCRIT 34.5 % (36.0-47.0); LYMPHOCYTES # (AUTO) 1.1 X10^3/uL (1.3-2.9); LYMPHOCYTES % (AUTO) 13.5 % (21.0-51.0); MEAN CORPUSCULAR HEMOGLOBIN 31.2 pg (27.0-34.0); MEAN CORPUSCULAR HGB CONC 35.3 g/dL (33.0-35.0); MEAN CORPUSCULAR VOLUME 88.5 fL (80.0-100.0); MEAN PLATELET VOLUME 8.2 fL (7.4-11.0); MONOCYTES # (AUTO) 0.6 x10^3/uL (0.3-0.8); MONOCYTES % (AUTO) 7.7 % (0.0-13.0); NEUTROPHILS # (AUTO) 6.2 x10^3/uL (2.2-4.8); NEUTROPHILS % (AUTO) 78.6 % (42.0-75.0); RED CELL DISTRIBUTION WIDTH 15.1 % (11.6-16.5); WHITE BLOOD COUNT 7.8 X10^3/uL (3.6-10.0)
[2022-02-14 01:21] LABS: HEMOGLOBIN 12.2 g/dL (12.0-16.0)
[2022-02-14] MEDS: ZOFRAN INJ 4 MG VIAL IVP PRN ×2 (01:25→08:30)
[2022-02-14] MEDS: MORPHINE SULFATE INJ 2 MG INJ IVP PRN ×3 (01:36→14:31)
[2022-02-14] MEDS: LR 1,000 ML IV 1,000 ML IV SCH ×2 (02:16→05:12)
[2022-02-14 05:10] LABS: BASOPHILS % (AUTO) 0.3 % (0.2-1.0); EOSINOPHILS % (AUTO) 0.1 % (0.9-2.9); HEMATOCRIT 34.2 % (36.0-47.0); HEMOGLOBIN 12.1 g/dL (12.0-16.0); LYMPHOCYTES # (AUTO) 1.4 X10^3/uL (1.3-2.9); LYMPHOCYTES % (AUTO) 19.8 % (21.0-51.0); MEAN CORPUSCULAR HEMOGLOBIN 31.2 pg (27.0-34.0); MEAN CORPUSCULAR HGB CONC 35.4 g/dL (33.0-35.0); MEAN CORPUSCULAR VOLUME 88.2 fL (80.0-100.0); MEAN PLATELET VOLUME 8.3 fL (7.4-11.0); MONOCYTES # (AUTO) 0.6 x10^3/uL (0.3-0.8); MONOCYTES % (AUTO) 8.2 % (0.0-13.0); NEUTROPHILS # (AUTO) 5.2 x10^3/uL (2.2-4.8); NEUTROPHILS % (AUTO) 71.6 % (42.0-75.0); RED BLOOD COUNT 3.88 X10^6/uL (3.5-5.4); RED CELL DISTRIBUTION WIDTH 15.3 % (11.6-16.5); WHITE BLOOD COUNT 7.3 X10^3/uL (3.6-10.0)
[2022-02-14] MEDS: NEURONTIN CAP 100 MG PO SCH ×2 (05:13→13:38)
[2022-02-14] MEDS: NICOTINE PATCH TD SCH (08:32)
[2022-02-14] MEDS ORDERED: PROTONIX TAB 40 MG PO SCH (09:00)
--- NOTE | 2022-02-14 13:16 | DR.OPNOTE ---
OP NOTE Pre-Op Diagnosis: Hiatal hernia , gastric outlet obstruction Post-Op Diagnosis: Pre pyloric ulcer, healing, not bleeding, large hiatal henia Procedure Date Date Of Procedure: 02/11/22 Procedure: PROCEDURE: esophagogastroduodenoscopy with biopsy NARRATIVE: The patient was taken to the operative suite and placed in the left lateral position. She was given intravenous sedation which was supervised by myself .Time out for the procedure obtained. Bite Block was placed in the mouth and endoscope introduced into the mouth into the esophagus. The gastroesophageal junction was at 30 cm and we could easily Berkeley it into a large hiatal hernia. The duodenum was normal . There was a 2-cm healing prepyloric gastric ulcer. Biopsies x 2 obtained of this. J maneuver showed no abnormality of the GE junction except that it was high. The scope was withdrawn the patient tolerated this well. Type of Anesthesia: Local Anesthesia Comment: MAC Findings: as above Specimen/Pathology: Biopsy of gastric ulcer Type of Fluids Used:: Lactated Ringers Complications:: none Needle/Sponge Count:: correct Disposition/Condition: Pt. tolerated procedure without difficulty. Extubated in the OR and taken to PACU in stable condition.
[2022-02-14 14:55] VITALS: BP 149/50
--- NOTE | 2022-02-14 19:37 | W.DIS.FURT ---
Summary of Discharge Discharge Summary of Date Date of Exam: 02/14/22 Admission Date Date of Admission: 02/09/22 Admission Diagnosis Patient Problems (Updated 02/14/22 @ 19:35 by Pavel Liu) Large hiatal hernia (Acute) K44.9 Gastric outlet obstruction (Acute) K31.1 Hospital Course: This 81 year old female was admitted on February 09. She had abdominal pain with vomiting and non contrast CT scan suggested possible gastric Outlet obstruction from a large hiatal hernia with most of the stomach in her chest. She had been seen two days prior in the emergency room with the same complaint and was discharged home with a diagnosis of urinary tract infection. She was admitted and placed on IV Protonix and pain medications. CT scan performed with oral contrast the next day showed no obvious perforation or overt obstruction however most of her stomach was in her chest. She underwent upper endoscopy on February 11 showing a healing pre-pyloric pyloric ulcer. Vomiting and abdominal pain resolved. Because of the large amount of stomach in her chest she was taken to the operating Suite on February 13 where she underwent a laparoscopic repair of the hiatal hernia with partial fundoplication. She is eating well and is mobilizing well. She will be be discharged home on her usual medications plus Protonix 40 mg PO daily and Percocet 5 mg tablets ,one every six hours pure in pain. She will follow up with me in one week. Vital Signs: Vital Signs (72 hours) 02/13/22 07:52 02/13/22 19:22 02/11/22 20:00 Temperature 97.0 F L 99.4 F Pulse Rate 77 81 Pulse Rate [Left Brachial] 83 Respiratory Rate 16 23 18 Blood Pressure 132/83 116/68 Blood Pressure [Left Arm] 121/57 O2 Sat by Pulse Oximetry 95 100 93 L Oxygen Delivery Method Room Air Oxygen Flow Rate FIO2% 02/11/22 21:05 02/11/22 21:35 02/11/22 23:47 Temperature 98.6 F Pulse Rate Pulse Rate [Left Brachial] 77 Respiratory Rate 19 19 20 Blood Pressure Blood Pressure [Left Arm] 122/57 O2 Sat by Pulse Oximetry 93 L Oxygen Delivery Method Room Air Oxygen Flow Rate FIO2% 02/12/22 04:00 02/12/22 07:13 02/12/22 07:00 Temperature 98.2 F 98.0 F Pulse Rate Pulse Rate [Left Brachial] 74 71 Respiratory Rate 18 18 Blood Pressure Blood Pressure [Left Arm] 125/65 113/55 O2 Sat by Pulse Oximetry 92 L 92 L Oxygen Delivery Method Room Air Room Air Room Air Oxygen Flow Rate FIO2% 02/12/22 11:38 02/12/22 15:34 02/12/22 20:00 Temperature 97.8 F 98.5 F 97.0 F L Pulse Rate Pulse Rate [Left Brachial] 70 69 77 Respiratory Rate 18 20 16 Blood Pressure Blood Pressure [Left Arm] 131/58 124/56 132/83 O2 Sat by Pulse Oximetry 96 92 L 95 Oxygen Delivery Method Room Air Room Air Room Air Oxygen Flow Rate FIO2% 02/12/22 19:00 02/13/22 00:00 02/13/22 04:00 Temperature 97.9 F 98.1 F Pulse Rate Pulse Rate [Left Brachial] 77 75 Respiratory Rate 20 18 Blood Pressure Blood Pressure [Left Arm] 126/57 130/62 O2 Sat by Pulse Oximetry 96 95 Oxygen Delivery Method Room Air Oxygen Flow Rate FIO2% 02/13/22 07:00 02/13/22 08:00 02/13/22 12:00 Temperature 98.0 F 98.1 F Pulse Rate Pulse Rate [Left Brachial] 67 78 Respiratory Rate 20 20 Blood Pressure Blood Pressure [Left Arm] 159/72 140/63 O2 Sat by Pulse Oximetry 93 L 95 Oxygen Delivery Method Room Air Oxygen Flow Rate FIO2% 02/13/22 10:30 02/13/22 15:34 02/13/22 15:59 Temperature 97 F L Pulse Rate 72 100 H 82 Pulse Rate [Left Brachial] Respiratory Rate 16 16 Blood Pressure 80/45 111/57 Blood Pressure [Left Arm] O2 Sat by Pulse Oximetry 95 94 L 95 Oxygen Delivery Method Oxy Mask Oxy Mask Oxygen Flow Rate FIO2% 02/13/22 16:04 02/13/22 15:39 02/13/22 15:44 Temperature Pulse Rate 79 92 H 86 Pulse Rate [Left Brachial] Respiratory Rate 16 16 16 Blood Pressure 110/59 80/50 80/45 Blood Pressure [Left Arm] O2 Sat by Pulse Oximetry 96 97 95 Oxygen Delivery Method Nasal Cannula Oxy Mask Oxy Mask Oxygen Flow Rate FIO2% 02/13/22 15:49 02/13/22 15:54 02/13/22 16:09 Temperature Pulse Rate 87 84 87 Pulse Rate [Left Brachial] Respiratory Rate 16 16 16 Blood Pressure 99/50 106/55 127/62 Blood Pressure [Left Arm] O2 Sat by Pulse Oximetry 96 98 96 Oxygen Delivery Method Oxy Mask Oxy Mask Nasal Cannula Oxygen Flow Rate FIO2% 02/13/22 16:35 02/13/22 16:56 02/13/22 16:45 Temperature 98 F Pulse Rate 78 72 Pulse Rate [Left Brachial] Respiratory Rate Blood Pressure Blood Pressure [Left Arm] O2 Sat by Pulse Oximetry 97 97 Oxygen Delivery Method Nasal Cannula Oxygen Flow Rate 2 FIO2% 28 02/13/22 16:46 02/13/22 16:46 02/13/22 16:53 Temperature Pulse Rate 61 77 Pulse Rate [Left Brachial] Respiratory Rate 26 H Blood Pressure 86/52 Blood Pressure [Left Arm] O2 Sat by Pulse Oximetry 97 97 Oxygen Delivery Method Oxygen Flow Rate FIO2% 02/13/22 16:53 02/13/22 17:00 02/13/22 17:00 Temperature Pulse Rate 78 Pulse Rate [Left Brachial] Respiratory Rate 25 H Blood Pressure 91/54 93/56 Blood Pressure [Left Arm] O2 Sat by Pulse Oximetry 97 Oxygen Delivery Method Oxygen Flow Rate FIO2% 02/13/22 17:08 02/13/22 17:08 02/13/22 17:15 Temperature Pulse Rate 85 Pulse Rate [Left Brachial] Respiratory Rate 25 H Blood Pressure 102/61 103/61 Blood Pressure [Left Arm] O2 Sat by Pulse Oximetry 98 Oxygen Delivery Method Oxygen Flow Rate FIO2% 02/13/22 17:15 02/13/22 17:30 02/13/22 17:30 Temperature Pulse Rate 78 81 Pulse Rate [Left Brachial] Respiratory Rate 25 H 25 H Blood Pressure 110/68 Blood Pressure [Left Arm] O2 Sat by Pulse Oximetry 98 98 Oxygen Delivery Method Oxygen Flow Rate FIO2% 02/13/22 17:53 02/13/22 17:45 02/13/22 17:45 Temperature Pulse Rate 80 Pulse Rate [Left Brachial] Respiratory Rate 18 21 Blood Pressure 116/77 Blood Pressure [Left Arm] O2 Sat by Pulse Oximetry 99 Oxygen Delivery Method Oxygen Flow Rate FIO2% 02/13/22 18:00 02/13/22 18:00 02/13/22 18:15 Temperature Pulse Rate 85 Pulse Rate [Left Brachial] Respiratory Rate 22 Blood Pressure 106/64 111/64 Blood Pressure [Left Arm] O2 Sat by Pulse Oximetry 100 Oxygen Delivery Method Oxygen Flow Rate FIO2% 02/13/22 18:15 02/13/22 18:23 02/13/22 18:30 Temperature Pulse Rate 86 Pulse Rate [Left Brachial] Respiratory Rate 21 19 Blood Pressure 116/68 Blood Pressure [Left Arm] O2 Sat by Pulse Oximetry 100 Oxygen Delivery Method Oxygen Flow Rate FIO2% 02/13/22 18:30 02/13/22 19:00 02/13/22 20:00 Temperature 97.7 F 97.5 F L Pulse Rate 81 Pulse Rate [Left Brachial] 87 83 Respiratory Rate 23 20 20 Blood Pressure Blood Pressure [Left Arm] 121/64 108/67 O2 Sat by Pulse Oximetry 100 99 99 Oxygen Delivery Method Nasal Cannula Nasal Cannula Oxygen Flow Rate FIO2% 02/13/22 21:49 02/13/22 22:00 02/13/22 19:00 Temperature Pulse Rate Pulse Rate [Left Brachial] 88 Respiratory Rate 23 22 Blood Pressure Blood Pressure [Left Arm] 128/67 O2 Sat by Pulse Oximetry 98 Oxygen Delivery Method Nasal Cannula Nasal Cannula Oxygen Flow Rate 2 FIO2% 02/13/22 22:19 02/13/22 23:00 02/14/22 00:00 Temperature 97.9 F Pulse Rate Pulse Rate [Left Brachial] 81 83 Respiratory Rate 21 24 20 Blood Pressure Blood Pressure [Left Arm] 131/72 125/62 O2 Sat by Pulse Oximetry 99 96 Oxygen Delivery Method Nasal Cannula Nasal Cannula Oxygen Flow Rate FIO2% 02/14/22 01:00 02/14/22 01:36 02/14/22 02:00 Temperature Pulse Rate Pulse Rate [Left Brachial] 92 H 87 Respiratory Rate 25 H 25 H 24 Blood Pressure Blood Pressure [Left Arm] 111/79 144/72 O2 Sat by Pulse Oximetry 96 96 Oxygen Delivery Method Nasal Cannula Nasal Cannula Oxygen Flow Rate FIO2% 02/14/22 02:06 02/14/22 03:00 02/13/22 20:38 Temperature Pulse Rate Pulse Rate [Left Brachial] 83 Respiratory Rate 25 H 19 Blood Pressure Blood Pressure [Left Arm] 133/71 O2 Sat by Pulse Oximetry 96 Oxygen Delivery Method Nasal Cannula Nasal Cannula Oxygen Flow Rate 2 FIO2% 28 02/14/22 04:00 02/14/22 05:00 02/14/22 06:00 Temperature 98.1 F Pulse Rate Pulse Rate [Left Brachial] 86 85 85 Respiratory Rate 19 20 21 Blood Pressure Blood Pressure [Left Arm] 132/70 134/70 143/73 O2 Sat by Pulse Oximetry 95 96 96 Oxygen Delivery Method Nasal Cannula Nasal Cannula Nasal Cannula Oxygen Flow Rate FIO2% 02/14/22 08:31 02/14/22 07:00 02/14/22 07:00 Temperature Pulse Rate Pulse Rate [Left Brachial] 82 Respiratory Rate 21 21 Blood Pressure Blood Pressure [Left Arm] 132/64 O2 Sat by Pulse Oximetry 96 Oxygen Delivery Method Nasal Cannula Nasal Cannula Oxygen Flow Rate 2 FIO2% 02/14/22 08:00 02/14/22 09:01 02/14/22 09:00 Temperature 98.6 F Pulse Rate Pulse Rate [Left Brachial] 97 H 96 H Respiratory Rate 29 H 25 H 26 H Blood Pressure Blood Pressure [Left Arm] 144/79 143/74 O2 Sat by Pulse Oximetry 93 L 94 L Oxygen Delivery Method Nasal Cannula Nasal Cannula Oxygen Flow Rate 2 FIO2% 02/14/22 10:00 02/14/22 11:00 02/14/22 12:00 Temperature 98.0 F Pulse Rate Pulse Rate [Left Brachial] 88 94 H 92 H Respiratory Rate 22 24 27 H Blood Pressure Blood Pressure [Left Arm] 125/76 115/58 136/93 O2 Sat by Pulse Oximetry 88 L 93 L 95 Oxygen Delivery Method Nasal Cannula Nasal Cannula Nasal Cannula Oxygen Flow Rate 2 2 2 FIO2% 02/14/22 14:31 02/14/22 13:00 02/14/22 14:00 Temperature Pulse Rate Pulse Rate [Left Brachial] 80 80 Respiratory Rate 27 H 25 H 22 Blood Pressure Blood Pressure [Left Arm] 140/85 149/50 O2 Sat by Pulse Oximetry 94 L 95 Oxygen Delivery Method Oxygen Flow Rate FIO2% 02/14/22 15:01 Temperature Pulse Rate Pulse Rate [Left Brachial] Respiratory Rate 27 H Blood Pressure Blood Pressure [Left Arm] O2 Sat by Pulse Oximetry Oxygen Delivery Method Oxygen Flow Rate FIO2% Labs: Laboratory Last Values WBC 7.3 X10^3/uL (3.6-10.0) 02/14/22 04:25 RBC 3.88 X10^6/uL (3.5-5.4) 02/14/22 04:25 Hgb 12.1 g/dL (12.0-16.0) 02/14/22 04:25 Hct 34.2 % (36.0-47.0) L 02/14/22 04:25 MCV 88.2 fL (80.0-100.0) 02/14/22 04:25 MCH 31.2 pg (27.0-34.0) 02/14/22 04:25 MCHC 35.4 g/dL (33.0-35.0) H 02/14/22 04:25 RDW 15.3 % (11.6-16.5) 02/14/22 04:25 Plt Count 244 X10^3/uL (150.0-450.0) 02/14/22 04:25 MPV 8.3 fL (7.4-11.0) 02/14/22 04:25 Neut % (Auto) 71.6 % (42.0-75.0) 02/14/22 04:25 Lymph % (Auto) 19.8 % (21.0-51.0) L 02/14/22 04:25 Brantley % (Auto) 8.2 % (0.0-13.0) 02/14/22 04:25 Eos % (Auto) 0.1 % (0.9-2.9) L 02/14/22 04:25 Baso % (Auto) 0.3 % (0.2-1.0) 02/14/22 04:25 Neut # (Auto) 5.2 x10^3/uL (2.2-4.8) H 02/14/22 04:25 Lymph # (Auto) 1.4 X10^3/uL (1.3-2.9) 02/14/22 04:25 Brantley # (Auto) 0.6 x10^3/uL (0.3-0.8) 02/14/22 04:25 Eos # (Auto) 0.0 x10^3/uL (0.0-0.2) 02/14/22 04:25 Baso # (Auto) 0.0 X10^3/uL (0.0-0.1) 02/14/22 04:25 Absolute Nucleated RBC 0.1 /100WBC 02/14/22 04:25 Sodium 143 mmol/L (136-145) 02/13/22 04:20 Corrected Sodium TNP 02/13/22 04:20 Potassium 3.4 mmol/L (3.5-5.1) L 02/13/22 04:20 Chloride 107 mmol/L (98-107) 02/13/22 04:20 Carbon Dioxide 27.1 mmol/L (21-32) 02/13/22 04:20 BUN 17 mg/dL (7-18) 02/13/22 04:20 Creatinine 0.88 mg/dL (0.55-1.02) 02/13/22 04:20 Est GFR (MDRD) Af Amer > 60 (>60) 02/13/22 04:20 Est GFR (MDRD) Non-Af > 60 (>60) 02/13/22 04:20 Glucose 92 mg/dL (65-99) 02/13/22 04:20 Calcium 7.7 mg/dL (8.5-10.1) L 02/13/22 04:20 Corrected Calcium 8.9 mg/dL (8.5-10.1) 02/13/22 04:20 Magnesium 1.7 mg/dL (2.0-2.9) L 02/13/22 04:20 Total Bilirubin 0.20 mg/dL (0.2-1.0) 02/13/22 04:20 AST 14 Units/L (15-37) L 02/13/22 04:20 ALT 12 Units/L (12-78) 02/13/22 04:20 Alkaline Phosphatase 199 Units/L (46-116) H 02/13/22 04:20 Total Protein 5.6 g/dL (6.4-8.2) L 02/13/22 04:20 Albumin 2.5 g/dL (3.4-5.0) L 02/13/22 04:20 Globulin 3.1 g/dL (2.5-4.5) 02/13/22 04:20 Albumin/Globulin Ratio 0.8 Ratio (1.1-2.1) L 02/13/22 04:20 Tissue Pathology To follow 02/11/22 07:45 Blood Type A POSITIVE 02/13/22 14:36 Antibody Screen Negative 02/13/22 14:36 Crossmatch See Detail 02/13/22 14:36 Reason For Visit: GASTRIC OUTLED OBSTRUCTION, HIATAL HERNIA Discharge Diagnosis All Active Problems (Updated 02/14/22 @ 19:35 by Pavel Noe) Prepyloric ulcer (Acute) Large hiatal hernia (Acute) Tobacco abuse (Acute) Seizures (Acute) UTI (urinary tract infection) (Acute) Right shoulder strain (Acute) Gastric outlet obstruction (Acute) Plan of Treatment: Continue with present treatment and follow up plan. Pt is to keep follow up appointment as instructed and take medications as ordered. Discharge Medications Discharge Medications: aspirin Allergy (Verified 02/07/22 19:14) Penicillins Allergy (Verified 02/07/22 19:14) Sulfa (Sulfonamide Antibiotics) [SULFA] Allergy (Verified 02/07/22 19:14) New Prescriptions oxycodone-acetaminophen 5 mg-325 mg tablet (Percocet) 1 tab PO Q6H PRN #20 tabs 02/14/22 [Rx] pantoprazole 40 mg tablet,delayed release (Protonix) 40 mg PO QDAY #60 tabs 02/14/22 [Rx] Discharge Disposition Assessment: Pre-pyloric gastric ulcer harge hiatal hernia with intra thoacic stomach Discharge Plan Discharge Plan Hospital Course: This 81 year old female was admitted on February 09. She had abdominal pain with vomiting and non contrast CT scan suggested possible gastric Outlet obstruction from a large hiatal hernia with most of the stomach in her chest. She had been seen two days prior in the emergency room with the same complaint and was discharged home with a diagnosis of urinary tract infection. She was admitted and placed on IV Protonix and pain medications. CT scan performed with oral contrast the next day showed no obvious perforation or overt obstruction however most of her stomach was in her chest. She underwent upper endoscopy on February 11 showing a healing pre-pyloric pyloric ulcer. Vomiting and abdominal pain resolved. Because of the large amount of stomach in her chest she was taken to the operating Suite on February 13 where she underwent a laparoscopic repair of the hiatal hernia with partial fundoplication. She is eating well and is mobilizing well. She will be be discharged home on her usual medications plus Protonix 40 mg PO daily and Percocet 5 mg tablets ,one every six hours pure in pain. She will follow up with me in one week. Patient Disposition: 01 HOME, SELF-CARE Condition: Stable Health Concerns: Post Hospitalization: new medications and changes needed to prevent readmission or further decline. Pt educated and given instructions on all concerns. Care Plan Goals: see hospital course above Plan of Treatment: Continue with present treatment and follow up plan. Pt is to keep follow up appointment as instructed and take medications as ordered. Assessment: Pre-pyloric gastric ulcer harge hiatal hernia with intra thoacic stomach Prescription drug monitoring program results: PDMP was not reviewed Prescriptions: New pantoprazole [Protonix] 40 mg tablet,delayed release (DR/EC) 40 mg PO QDAY Qty: 60 3RF oxycodone-acetaminophen [Percocet] 5-325 mg tablet 1 tab PO Q6H MDD 4 PRNQty: 20 0RF Continued carbamazepine 200 mg tablet extended release 12 hr 1 tab PO TID gabapentin 100 mg capsule 1 cap PO TID Follow ups/Referrals Follow ups/Referrals: Pavel Liu [STAFF PHYSICIAN] - 1 WEEK Instructions Stand Alone Forms: Excuse From Work or School
--- NOTE | 2022-02-16 20:21 | DR.OPNOTE ---
OP NOTE Pre-Op Diagnosis: Large hiatal hernia , stomach in chest Procedure Date Date Of Procedure: 02/13/22 Procedure: PROCEDURE: LAPAROSCOPIC HIATAL HERNIA REPAIR, PARTIAL GASTROESOPHAGEAL FUNDOPLICATION NARRARTIVE :Patient was taken to the operative suite and placed in the supine position. General endotracheal anesthesia induced. Patient then placed in lithotomy position and the entire abdomen prepped and draped in sterile fashion. Time out for the procedure obtained . 5 mm incision was made one finger breadth above the umbilicus one finger breadth to the left of the umbilicus and a 5 mm Optical trocar placed into the abdominal cavity. The abdomen was insufflated to 15 mm of Hg mercury with carbon dioxide. Under direct vision a 5 mm trocar was placed along the left costal margin at the anterior axillary line . 5 mm trocar placed at the right costal margin and liver retractor placed . Under direct vision 5 mm trocars were placed on either side of the midline in the epigastrium . Stomach was grasped and gentle pressure applied and pulled downward and the omentum on the greater curvature of the stomach divided with Voyant device up into the chest freeing up the stomach all the way to the esophagus. Omentum on the right side of the esophagus was taken down along the lesser curvature into the chest. The stomach was mobile at this point. At this point the hiatal hernia was closed with interrupted 0 vicryl sutures. Stomach had been pulled down and the fundus grasped from underneath the esophagus and brought from left to right. This stomach brought in proximity of the eosphagus and sutured on either side with interrupted 0 Vicryl sutures creating a 270-degree wrap. The stomach was pexed to the left crura with two sutures of 0 Vicryl. This was done over a 58 Romanian blunt tip bougie in the esophagus .Bougie was removed. All trocars removed . All laparoscopic incisions closed with interrupted 3-0 Vicryl sutures and the skin closed with steri- strips . 5 % Marcaine.injected into all the incisions Patient extubated and taken to the PACU in good condition. Type of Anesthesia: General Anesthetic w/ETT Findings: Large hiatal hernia with most of stomach in the chest. Type of Fluids Used:: Lactated Ringers Complications:: none Needle/Sponge Count:: correct Disposition/Condition: Pt. tolerated procedure without difficulty. Extubated in the OR and taken to PACU in stable condition.
== END 2022-02-14 15:30 | disposition home or self-care (01) | DRG 392 ==
LOC: ER 11:32 → MED/SURG 15:39 → ICU 02-13 16:30
PROVIDERS: ADMIT Surgery; ATTEND Surgery